=== PATIENT | female | born 1955 | race Caucasian/White ===

== ENCOUNTER → 2019-02-17 | Outpatient (CLI) | payer MEDICARE ==
--- NOTE | 2019-02-18 13:42 | Diagnostic Imaging Report ---
EXAMINATION: CT of the cervical spine HISTORY: Neck pain, history of prior fall. COMPARISON: None available TECHNIQUE: Multidetector helical axial images were obtained without contrast from the foramen magnum to T1. The images were reconstructed using bone and soft tissue algorithms and were viewed in axial, sagittal and coronal planes. Image quality: X right being attenuation due to patient's body habitus and shoulders limits the evaluation of the lower neck/cervical spine. Dose modulation, iterative reconstruction, and/or weight based adjustment of the mA/kV was utilized to reduce the radiation dose to as low as reasonably achievable. FINDINGS: Alignment: Normal alignment and lordosis Soft tissues: Enlarged right lobe of the thyroid gland with heterogeneous density partially calcified nodule. The left lobe and isthmus are not well visualized, likely from prior surgery. Vertebrae: Normal height and density. No acute fracture, infection or neoplasm Degenerative changes: C1-C2: Mild degenerative changes without stenosis. C2-C3: Mild bilateral facet arthrosis without stenosis. C3-C4: Mild uncovertebral and facet arthrosis without stenosis. C4-C5: Small disc osteophyte complex formation, bilateral uncovertebral and to a lesser extent facet arthrosis. Minimal canal and bilateral foramina narrowing mainly on the right. C5-C6: Small disc osteophyte complex formation and mild bilateral uncovertebral arthrosis. No significant stenoses. C6-C7: Asymmetric right disc osteophyte complex formation and bilateral uncovertebral arthrosis. Mild right foraminal narrowing. C7-T1: Facet arthrosis mainly on the left without stenosis. IMPRESSION: 1. Mild multilevel spondylosis from C4-C5 to C6-7 without significant canal or foraminal stenosis. 2. Partially visualized enlarged right lobe of the thyroid gland, a neck ultrasound is recommended if not previously evaluated. Note: Acute postraumatic spinal cord, vascular or ligamentous injuries cannot adequately be assessed by CT. Signed by: Dr. Esther Sprague M.D. on 02/18/2019 1:39 PM
--- NOTE | 2019-02-18 13:58 | Diagnostic Imaging Report ---
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 The images were reconstructed using bone and soft tissue algorithms and were viewed in axial, sagittal, and coronal planes. Dose modulation, iterative reconstruction, and/or weight based adjustment of the mA/kV was utilized to reduce the radiation dose to as low as reasonably achievable. FINDINGS: Alignment: Normal alignment and lordosis. Vertebral bodies: Normal height and density. Paraspinal muscles: Small radiopaque foreign body in the subcutaneous soft tissues of the right breast minor region of the level of L3-4, likely recommend from prior pump placement. Partially visualized heterogeneous density, mostly soft tissue lesion in the pelvis. Intervertebral disks: L1-L2: Normal. L2-L3: Normal. L3-L4: Mild decreased disc high, minimal asymmetric to the right disc osteophyte mild facet arthroses. No significant spinal canal or foraminal stenoses. L4-L5: Minimal facet arthrosis with minimal left foraminal narrowing. Otherwise no significant canal or foraminal stenosis.\ L5-S1: Postoperative changes with metallic endplate/disc replacement, prominent streak artifact limits evaluation of the spinal canal and foramina. Prominent bilateral facet arthrosis with probable [id number] foraminal stenoses most on the right. Sacroiliac joints: Mild degenerative changes bilaterally. IMPRESSION: 1. Postoperative endplate changes at L5-S1 with prominent streak artifact which limits the evaluation of this level. 2. In spite of this limitation there might be mild to moderate degenerative foraminal stenosis at L5-S1 due to facet arthrosis. 3. Minimal degenerative changes at L3-L4 and L4-L5 otherwise without significant canal or foraminal stenosis. 4. Partially visualized heterogeneous density lesion in the pelvis, comparison to prior studies if available is recommended, otherwise a pelvic ultrasound is recommended for further evaluation. Signed by: Dr. Esther Sprague M.D. on 02/18/2019 1:55 PM
== END ==
LOC: CT 16:22
PROVIDERS: ATTEND Anesthesiology Pain Medicine
DX: M96.1 Postlaminectomy syndrome, not elsewhere classified (principal); M54.2 Cervicalgia
CPT/HCPCS: 72125; 72131